=== PATIENT | female | born 2000 | race Two or more races ===

== ENCOUNTER 2023-11-27 19:31 | Emergency (ER) | payer OTHER ==
[~2023-11-27] VITALS: Ht 172.7 cm; Wt 53.1 kg
[2023-11-27] MEDS ORDERED: ONDANSETRON HCL 2 MG/ML VIAL IV ONE (20:30)
[2023-11-27] MEDS ORDERED: PANTOPRAZOLE SODIUM 40 MG/VIAL VIAL IV PUSH ONE (20:30)
[2023-11-27] MEDS ORDERED: 0.9 % SODIUM CHLORIDE 1,000 ML IV ONE (20:30)
[2023-11-27] MEDS ORDERED: HYOSCYAMINE SULFATE 0.125 MG TAB.SUBL SL ONE (20:30)
[2023-11-27] MEDS ORDERED: ONDANSETRON HCL 2 MG/ML VIAL ONE (20:39)
[2023-11-27] MEDS ORDERED: HYOSCYAMINE SULFATE 0.125 MG TAB.SUBL ONE (20:40)
[2023-11-27 21:29] LABS: HEMATOCRIT 42.4 % (36.0-45.00); HEMOGLOBIN 14.6 g/dL (12.0-15.00); MEAN CELL VOLUME 89.5 fL (80.00-100.00); MEAN CORPUSCULAR HEMOGLOBIN 30.7 pg (27.00-32.0); MEAN CORPUSCULAR HGB CONC 34.4 g/dl (32.0-36.0); PLATELET COUNT 197 K/uL (150-450); RED BLOOD COUNT 4.74 M/uL (4.00-6.00); RED CELL DISTRIBUTION WIDTH 12.8 % (11.5-14.5)
[2023-11-27 21:35] LABS: ALBUMIN 3.6 gm/dL (3.4-5.0); ALKALINE PHOSPHATASE 38 U/L (50-136); ALT/SGPT 23 U/L (12-78); AMYLASE 60 U/L (25-115); ANION GAP 12 (10.0-20.0); AST/SGOT 16 U/L (15-37); BILIRUBIN TOTAL 0.42 mg/dL (0.3-1.2); BLOOD UREA NITROGEN 14 mg/dL (7-18); BUN CREA RATIO 18 (7.0-25.0); CALCIUM 8.8 mg/dL (8.5-10.1); CARBON DIOXIDE 23 mEq/L (21-32); CHLORIDE 111 mmol/L (98-107); GFR 88.12; GLOBULINA 3.4 G/DL (2.4-3.5); GLUCOSE FASTING 94 mg/dL (65-100); LIPASE 23 U/L (13-75); OSMOLALITY SERUM 283 MOSM/KG (275-295); POTASSIUM 3.91 mEq/L (3.5-5.1); SODIUM 142 mmol/L (136-145)
[2023-11-27 21:43] LABS: HCG QUANTITATIVE < 1 mUI/mL (1-3)
[2023-11-27 23:07] LABS: HEMATOCRIT 39.3 % (36.0-45.00); HEMOGLOBIN 13.6 g/dL (12.0-15.00); MEAN CELL VOLUME 89.8 fL (80.00-100.00); MEAN CORPUSCULAR HGB CONC 34.5 g/dl (32.0-36.0); PLATELET COUNT 173 K/uL (150-450); RED BLOOD COUNT 4.38 M/uL (4.00-6.00); RED CELL DISTRIBUTION WIDTH 12.8 % (11.5-14.5)
== END 2023-11-28 00:03 | disposition home or self-care (01) ==
LOC: ER 19:31
PROVIDERS: General Practice
DX: R11.10 Vomiting, unspecified (principal); Z91.018 Allergy to other foods